=== PATIENT | male | born 1980 | race Caucasian/White ===

== ENCOUNTER 2019-01-20 05:30 | Day surgery (SDC) | payer SELFPAY ==
[~2019-01-20 05:30] MED LIST: Buffered Lidocaine 1% SYRIN* 1 ML/SYRINGE INTRADERM ONE
[2019-01-20] MEDS ORDERED: Famotidine IV* 10 MG/ML 2 ML (20 mg) IV ONE (06:00)
[2019-01-20] MEDS ORDERED: Lactated Ringers 1000 ML Bag* 1,000 ML IV SCH (06:00)
[2019-01-20] MEDS ORDERED: Dexamethasone IV* 4 MG/ML 1 ML (4 MG) IV SLOW PU ONE (06:00)
[2019-01-20] MEDS ORDERED: Famotidine IV* 10 MG/ML 2 ML (20 mg) ONE (06:23)
[2019-01-20] MEDS ORDERED: Dexamethasone IV* 4 MG/ML 1 ML (4 MG) ONE ×2 (06:23→08:08)
[2019-01-20] MEDS ORDERED: ceFAZolin 2 GM in NS PREMIX(*) 2 GM/100 ML BAG IVPB ONE (06:23)
[2019-01-20] MEDS ORDERED: fentaNYL* 50 MCG/ML 2 ML VIAL (100 MCG VIAL) ONE ×3 (07:25→10:09)
[2019-01-20] MEDS ORDERED: Midazolam* 1 MG/ML 2 ML VIAL (2 MG) ONE (07:25)
[2019-01-20] MEDS ORDERED: Lidocaine 2% PF * 5 ML VIAL ONE (07:26)
[2019-01-20] MEDS ORDERED: Propofol* 10 MG/ML 20 ML BTL ONE (07:26)
[2019-01-20] MEDS ORDERED: Bupivacaine 0.25% SDV PF* 10 ML VIAL INJ ONE ×2 (07:31→10:00)
[2019-01-20] MEDS ORDERED: Bupivacaine 0.5%* 50 ML MDV VIAL ONE (07:31)
[2019-01-20] MEDS ORDERED: DiMENhydriNATE IV* 50 MG/ML VIAL IV PUSH PRN (08:06)
[2019-01-20] MEDS ORDERED: Acetaminophen IV 1GM/100ML * 1,000 MG/100 ML VIAL IVPB ONE (08:06)
[2019-01-20] MEDS ORDERED: Naloxone* 0.4 MG/ML 1 ML VIAL IV PRN (08:06)
[2019-01-20] MEDS ORDERED: Ondansetron INJ* 2 MG/ML VIAL ONE (08:08)
[2019-01-20] MEDS ORDERED: Ketorolac INJ* 30 MG/ML 1 ML VIAL ONE (08:08)
[2019-01-20] MEDS ORDERED: Acetaminophen IV 1GM/100ML * 100 ML ONE (10:09)
[2019-01-20] MEDS: fentaNYL* 50 MCG/ML 2 ML VIAL (100 MCG VIAL) IV PRN ×2 (10:10→10:49)
[2019-01-20] MEDS ORDERED: oxyCODONE TAB* 5 MG TAB ONE (10:34)
--- NOTE | 2019-01-20 11:22 | OP ---
Operative Report - Blank - Operative Report Date of Operation: 01/20/19 Note: PATIENT: Ren Mohan DATE OF : 1980 DATE OF SURGERY: 01/20/2019 SURGEON: Jones Rutledge MD COUNSELOR CAMP: JAZMYNE Rushing, whos assistance was necessary for positioning, retraction, help with instrumentation, and closure. ANESTHESIOLOGIST: Dr. Jacobs PREOPERATIVE DIAGNOSIS: Left osteochondral lesion of the talus, chronic ankle instability, peroneus brevis tear, and peroneal tenosynovitis. POSTOPERATIVE DIAGNOSIS: Left osteochondral lesion of the talus, chronic ankle instability, peroneus brevis tear, and peroneal tenosynovitis. OPERATION: 1. Left ankle arthroscopy with extensive debridement. 2. Curettage and microfracture of talar osteochondral lesion. 3. Left peroneus brevis tendon repair. 4. Left synovectomy of peroneal tendon sheath. 5. Left ankle modified Brostrom procedure lateral ligament reconstruction. ANESTHESIA: General IMPLANTS: Arthrex fibertak suture anchors x2 TOURNIQUET TIME: Less than 2 hours with a well-padded thigh tourniquet at 250 mmHg SPECIMENS: none ESTIMATED BLOOD LOSS: minimal COMPLICATIONS: none STATUS: Stable from the operating room to the recovery room and then home. INDICATIONS FOR PROCEDURE: Ren has had long-standing left ankle pain and instability. Both operative and non operative treatment alternatives were reviewed. Further, the nature and risks of surgery were reviewed in careful detail, in the office as well as the pre-operative holding area. Our discussions regarding the risks of surgery included, but were not limited to, infection, wound problems, nerve injury, neuroma, RSD, persistent symptoms, blood clot, failure of the surgery, and even the remote chance of catastrophic complication. DESCRIPTION OF PROCEDURE: The patient was seen in the preoperative holding unit and informed written consent was obtained. The appropriate extremity was marked. The patient was then brought to the operating room and carefully positioned on the operating room table. Anesthesia was induced. All bony prominences were padded with great care. A well-padded thigh tourniquet was placed. A chlorhexidine based pre- scrub was performed followed by a chloraprep prep and drape in standard sterile fashion. A surgical safety pause was then conducted in which we confirmed the appropriate patient, extremity, planned procedure, availability of equipment, indication and administration of prophylactic antibiotics, and DVT prophylaxis in the form of a compression boot on the non-surgical extremity. An Esmarch exsanguination of the limb was then performed and the tourniquet inflated. The leg was positioned in the noninvasive ankle arthroscopy leg zuluaga setup. I began by establishing the anteromedial portal. I utilized a spinal needle for this. Great care was taken to protect the superficial neurovascular structures. Under direct visualization, I then established an anterolateral portal. Great care was taken to protect the superficial peroneal nerve. I utilized the full radius shaver to remove a considerable amount of synovitis from the anterior, posterior and lateral scpects of the ankle joint. This was carefully removed to give a nice view of the ankle joint. There was an osteochondral lesion of the talus at the lateral talar dome. There were no additional chondral lesions appreciated. At this point, I utilized a ringed curette to remove loose debris from within the osteochondral lesion. This was curetted back to a stable rim around the perimeter of lesion. The calcified cartilage layer was then removed. I then utilized the microfracture awl to microfracture the lesion. There was healthy bleeding from the subchondral bone. I then again utilized the full radius shaver to remove all additional debris from the ankle joint. I removed the arthroscopic equipment and closed the portals utilizing 3-0 nylon suture. I then made an approximately 8 cm incision overlying the distal fibula. This was made in line with the distal fibula and then curving anteriorly. I carried the dissection down through the soft tissue to the level of the periosteum and superior peroneal retinaculum (SPR) with care taken to protect the sural nerve, which was not visualized during the procedure. I carefully incised the SPR off of the posterior fibula to expose the peroneal tendons. Dissection of the tendons was carried distally. There was a large amount of inflamed tenosynovium within the tendon sheath. An extensive synovectomy was performed. Additionally, there was a low-lying peroneus brevis muscle belly which was debrided and excised. The tendons were explored at this time for any tears. There was a longitudinal split tear of the peroneus brevis at the level of the retrofibular groove. I removed a small slip of loose frayed tendon in this area, leaving approximately 90% of the tendon intact. I then utilized a 3-0 Ethibond suture to repair the tendon tear. At this point, I carefully inspected the peroneal groove at the posterior aspect of the fibula. This was deemed to have adequate depth so the decision was made not to perform a groove deepening procedure. So at this point I carefully planned out the repair of the superior peroneal retinaculum. I then reduced the tendons and they sat nicely in the retro-fibular groove. The wound was copiously irrigated. I repaired the SPR utilizing #1 Vicryl suture in a transosseous horizontal mattress suture pattern. I utilized multiple sutures for this repair, appropriately tensioning the SPR. I was able to pass a Burnside under the repaired SPR without difficulty after the repair. I then dissected anteriorly to expose the anterolateral ankle ligaments. We protected the superficial peroneal nerve at all times, which was not visualized within our field. Once we had adequately exposed a pocket anterior to the ligaments, we sharply took the ligaments down off of the anterior and distal aspect of the fibula using a 15 blade. The inferior extensor retinaculum was exposed and protected for subsequent repair later in the procedure. I then utilized a rongeur to make a trough along the fibula to receive the reconstructed ligaments. I then utilized 2 Arthrex fibertak suture anchors in the fibula for a repair of the lateral ligaments utilizing a horizontal mattress suture. These sutures were all passed with great care taken to appropriately tension both the ATFL as well as the CFL in order to get a nice tight repair. We held the ankle in a dorsiflexed and everted position while the ligaments and sutures were tied down over the fibular bone bridges. These held the ankle in a much improved position with excellent tension on the ligaments. We then utilized a rotational flap from the periosteum overlying the distal fibula to augment the repair. This was sewn down using a horizontal mattress stich overlying the ATFL. We further augmented the repair by bringing the inferior extensor retinaculum up to the fibula. There was a much improved anterior drawer at this point as compared to pre-operatively. The wound was copiously irrigated. At this point, a sterile dressing was applied and the ankle was splinted in a neutral position. The patient was then awakened from anesthesia and transferred to the recovery room in stable condition. There were no complications. All needle and sponge counts were correct at the end of the case. ATTESTATION: I attest I was present and scrubbed and performed the critical portions of the procedure myself. POSTOPERATIVE PLAN: The patient will remain nonweightbearing for an anticipated duration of six weeks. Follow up will be in two weeks for likely suture removal , Steri-Strip application and transition into a short leg cast.
[2019-01-20 11:51] VITALS: BP 146/81
== END 2019-01-20 11:52 | disposition home or self-care (01) ==
LOC: OR 05:30
PROVIDERS: ATTEND Orthopaedic Surgery
DX: M25.372 Other instability, left ankle (principal); M76.72 Peroneal tendinitis, left leg; M93.272 Osteochondritis dissecans, left ankle and joints of left foot; M65.872 Other synovitis and tenosynovitis, left ankle and foot
CPT/HCPCS: A9270-GY; C1713; C1776; J0690; J1100; J1885; J2250; J2405; J2704; J3010; J3490